=== PATIENT | female | born 1980 | race African-American/Black ===

== ENCOUNTER → 2020-01-15 | Day surgery (SDC) | payer OTHER ==
--- NOTE | 2020-01-15 10:52 | RAD REPORT ---
EXAM DESCRIPTION: Ultrasound-guided vacuum assisted right breast core biopsy CLINICAL HISTORY: Breast mass N63.41, N63.24 COMPARISON: Liver Only dated 12/16/2017 FINDINGS: Informed consent was obtained and time-out was performed. The patient's right breast was prepped and draped in the usual sterile fashion. 1% lidocaine was used for local anesthetic purposes. Utilizing aseptic technique and ultrasound guidance, a 12 gauge vacuum assisted core biopsy device wa s used to obtain 2 core specimens through the mass of interest. A post biopsy clip was then placed. All collected material was sent for cytology. Patient tolerated procedure well. IMPRESSION: Successful ultrasound guided vacuum assisted right breast mass biopsy.
== END | disposition home or self-care (01) ==
LOC: DS 09:52
PROVIDERS: ATTEND Surgery
DX: N63.41 Unspecified lump in right breast, subareolar (principal); N63.24 Unspecified lump in the left breast, lower inner quadrant
CPT/HCPCS: 19083; 88305

== ENCOUNTER 2020-03-12 06:52 | Day surgery (SDC) | payer OTHER ==
[2020-03-11 18:07] LABS: Absolute Lymphocytes (CBC) 2.1 K/uL (0.7-4.9); Basophils % 0.7 % (0-1.3); Hematocrit 40.9 % (36.0-45.0); Lymphocytes % 42.6 % (15.3-44.8); MPV 10.3 fL (7.6-11.3); RBC Red Blood Cell Count 5.96 M/uL (3.86-4.86)
[2020-03-11 18:27] LABS: BUN Blood Urea Nitrogen 10 mg/dL (7-18); Bicarbonate 28 mmol/L (21-32); Glucose Level 74 mg/dL (74-106); Potassium 3.2 mmol/L (3.5-5.1); Sodium Level 139 mmol/L (136-145)
[2020-03-11 18:42] LABS: Blood Morphology Comment NOTED (NOT SEEN); Hypochromasia 1+; Platelet Estimate ADEQ; White Blood Cell Scan OK (OK)
[2020-03-12] MEDS ORDERED: Ringers Lactate 1,000 ML IV ONE ×2 (07:34→09:51)
--- NOTE | 2020-03-12 08:16 | RAD REPORT ---
EXAM DESCRIPTION: US - Brst,Preop NL Wire Init w/Guid - 03/12/2020 7:40 am CLINICAL HISTORY: Breast mass FINDINGS: The skin, subcutaneous tissues and breast tissue were anesthetized with lidocaine. Under sonographic guidance a Kopan's hook wire was placed into the 9 millimeter mass within the inner right breast. The patient then left for the surgical department IMPRESSION: Ultrasound-guided needle wire localization of a right breast mass
[2020-03-12] MEDS ORDERED: EPHEDRINE SULF 50 MG/ML VIAL ONE (08:18)
[2020-03-12] MEDS ORDERED: propofoL 200 MG/20 ML VIAL IV ONE ×2 (08:41→08:50)
[2020-03-12] MEDS ORDERED: FENTANYL CITR 100 MCG/2 ML ONE ×2 (08:41→08:50)
[2020-03-12] MEDS ORDERED: MIDAZOLAM HCL 2 MG/2 ML INJ ONE ×2 (08:42→08:51)
[2020-03-12] MEDS ORDERED: LIDOCAINE 2% MPF 5 ML VIAL ONE ×2 (08:42→08:51)
[2020-03-12] MEDS ORDERED: ONDANSETRON 4 MG/2 ML VIAL ONE ×2 (08:42→08:51)
[2020-03-12] MEDS: CEFAZOLIN/SWI 1gm 1 GM/10 ML SYR ONE ×2 (08:44→08:55)
[2020-03-12] MEDS ORDERED: dexAMETHasone 10 MG/ML VIAL ONE (08:50)
[2020-03-12] MEDS ORDERED: KETOROLAC 30 MG/ML INJ ONE (08:51)
--- NOTE | 2020-03-12 09:42 | P.BOP ---
Preoperative diagnosis: right breast tender mass Postoperative diagnosis: same Primary procedure: Right breast lumpectomy needle localized Shoulder Joiner: MARQUIS BAKER (TELEMARKETING MANAGER) Estimated blood loss: <10cc Specimen: breast mass Findings: as above Anesthesia: General Complications: None Transferred to: Recovery Room Condition: Good
--- NOTE | 2020-03-12 10:33 | OP ---
Date of Procedure: 03/12/2020 Surgeon: Reese Skinner MD School Operations Manager: VIRGINIA Brink. Preoperative Diagnosis: Right breast tender mass. Postoperative Diagnosis: Right breast tender mass. Procedure: Right breast lumpectomy, needle localized. Specimen: Breast mass. Findings: Lesion within the specimen by Dr. Ruth. Indications: This is the case of a female who comes to us with a breast mass. Given the pain, disco mfort, increasing in size, she wants that excised. Breast lumpectomy fully explained, needle localiz ed with benefits, alternatives, and risks including, but not limited to infection, bleeding, damage t o adjacent structures as complication, recurrence, OK and even . She also understands this may not relieve any symptoms. She might need more than one surgical intervention. She understood and si gned a consent. Description Of Procedure: Patient was brought to the operating room, placed in supine position. Ane sthesia was done without complication. This morning she went to a radiology suite where she had loca lization of the mass by Dr. Urbina. The patient was sent directly to the OR after that making sure the needle is intact without disrupting. When we prepped the area, once again we made sure that nee dles are intact without disrupt. After that the area was prepped and draped in usual sterile fashion . Time-out was called and we proceeded then to make a curvilinear incision in the periareolar region . Incision was carried down to subcutaneous tissue. Then, we proceeded to secure the lesion and the wire with Allis clamp and then we proceeded to do the dissection around the area. The specimen was sent to the pathologist with the intact needle and Dr. Ruth reported as needle within the specimen and lesion within the specimen. At that moment, area was already irrigated. We closed the area wit h 3-0 chromic and 4-0 PDS. The patient tolerated the procedure well. Hemostasis was obtained before closure. The patient is in her way to recovery in stable condition. Disposition: Home. Activity: As tolerated. No heavy lifting. Plan: Follow up in my office in 1 week. Call for appointment at [phone]. Keep area dry for 48 gilbert rs, then may shower. Keep Steri-Strip intact. Medications: See orders. HM/MODL Voice ID: [id number] Report ID: [id number]
[2020-03-12 10:42] VITALS: TEMP 97.1
--- NOTE | 2020-03-12 10:55 | RAD REPORT ---
EXAM DESCRIPTION: US - Surgical Specimen - 03/12/2020 9:55 am CLINICAL HISTORY: Breast mass FINDINGS: Ultrasound demonstrates the hypo echoic mass to lie within the resected breast surgical ti ssue
[2020-03-12] MEDS ORDERED: CODEINE 30MG/APAP 300MG TAB ONE (11:17)
[2020-03-12 11:19] VITALS: BP 118/93; O2SAT 100
== END 2020-03-12 11:55 | disposition home or self-care (01) ==
LOC: OR 06:52
PROVIDERS: ATTEND Surgery
PROC: 0HBT0ZZ Excision of Right Breast, Open Approach (ICD-10-PCS; principal; 2020-03-12 09:30)
DX: D24.1 Benign neoplasm of right breast (principal); N60.11 Diffuse cystic mastopathy of right breast; Z20.828 Contact with and (suspected) exposure to other viral communicable diseases
CPT/HCPCS: 85025; 80048; 36415; 84703; 88305; 76098; 19285; 19301; U0002; J2704 ×2; J2250; J3010; J1100; J0690; J7120 ×2; J2405 ×2; 88307

== ENCOUNTER 2020-09-20 17:58 | Emergency (ER) | payer OTHER ==
[2020-09-20] MEDS ORDERED: MORPHINE 2 MG/ML SYR ONE ×2 (20:44→23:16)
[2020-09-20 21:53] LABS: Absolute Lymphocytes (CBC) 1.7 K/uL (0.7-4.9); Basophils % 0.7 % (0-1.3); Hematocrit 40.5 % (36.0-45.0); Lymphocytes % 42.8 % (15.3-44.8); MPV 10.5 fL (7.6-11.3); RBC Red Blood Cell Count 5.82 M/uL (3.86-4.86)
[2020-09-20 22:00] LABS: Protime INR 0.99
[2020-09-20 22:03] LABS: BUN Blood Urea Nitrogen 4 mg/dL (7-18); Bicarbonate 24 mmol/L (21-32); Glucose Level 83 mg/dL (74-106); Potassium 3.4 mmol/L (3.5-5.1); Sodium Level 141 mmol/L (136-145)
[2020-09-20 22:05] LABS: Urine Blood 3+ (NEG); Urine Glucose NEGATIVE (NEG); Urine Protein NEGATIVE (NEG)
[2020-09-20] MEDS ORDERED: dexAMETHasone 10 MG/ML VIAL ONE (23:12)
[2020-09-20] MEDS ORDERED: CLINDAMYCIN 600MG/D5W 600 MG/50 ML BAG IV ONE (23:12)
--- NOTE | 2020-09-20 23:38 | EDPHYS ---
Physician Documentation [facility] Name: Stella Lucas Age: 40 yrs Sex: Female : 1980 Arrival Date: 09/20/2020 Time: 18:00 Bed 5 Private MD: ED Physician Danny Bliss HPI: 09/20 20:10 This 40 yrs old Black Female presents to ER via Ambulatory with complaints of Sore cp Throat, Facial Swelling, Abscess. 20:10 The patient presents with sore throat, dysphagia, of both solids and liquids. cp 20:10 The patient describes throat pain as constant. Onset: The symptoms/episode cp began/occurred 4 day(s) ago. Severity of symptoms: in the emergency department the symptoms are actually worse, moderately. Associated signs and symptoms: Pertinent positives: dysphagia, earache, Sore throat Pertinent negatives cough, fever. 20:10 Patient reports she started taking prescribed Augmentin 3 days ago. 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 - Social history:: Smoking status: Patient denies any tobacco usage or history of. ROS: 20:15 Constitutional: Positive for poor PO intake, Negative for body aches, chills, fever. cp 20:15 Eyes: Negative for injury, pain, redness, and discharge. cp 20:15 ENT: Positive for difficulty swallowing, ear pain, sore throat, Negative for drainage from ear(s), difficulty handling secretions. 20:15 Cardiovascular: Negative for chest pain, palpitations. 20:15 Respiratory: Negative for cough, shortness of breath, wheezing. 20:15 Abdomen/GI: Negative for abdominal pain, nausea, vomiting, and diarrhea, constipation. 20:15 Skin: Negative for cellulitis, rash. 20:15 Neuro: Negative for altered mental status, headache, weakness. 20:15 All other systems are negative. Exam: 20:20 Constitutional: The patient appears in no acute distress, alert, awake, well developed, cp well nourished, uncomfortable. 20:20 Head/Face: Normocephalic, atraumatic. cp 20:20 Eyes: Periorbital structures: appear normal, Conjunctiva: normal, no exudate, no injection, Sclera: no appreciated abnormality, Lids and lashes: appear normal, bilaterally. 20:20 ENT: External ear(s): are unremarkable, Ear canal(s): are normal, clear, TM's: dullness, bilaterally, Nose: is normal, Mouth: Lips: moist, Oral mucosa: moist, Posterior pharynx: Tonsils: no enlargement, no exudate, Uvula: midline, erythema, that is moderate. 20:20 Neck: ROM/movement: is normal, is supple, no meningismus, no nuchal rigidity, Lymph nodes: lymphadenopathy is appreciated, anterior cervical nodes. 20:20 Chest/axilla: Inspection: normal, Palpation: is normal, no crepitus, no tenderness. 20:20 Cardiovascular: Rate: normal, Rhythm: regular. 20:20 Respiratory: the patient does not display signs of respiratory distress, Respirations: normal, no use of accessory muscles, no retractions, labored breathing, is not present, Breath sounds: are clear throughout, no decreased breath sounds. 20:20 Abdomen/GI: Exam negative for discomfort, distension, guarding, Inspection: abdomen appears normal. Vital Signs: 18:27 BP 124 / 91; Pulse 73; Resp 16 S; Temp 97.3(TE); Pulse Ox 99% on R/A; Weight 65.77 kg ca1 (R); Height 5 ft. 2 in. (157.48 cm) (R); Pain 8/10; 20:47 BP 114 / 79; Pulse 61; Resp 18; Temp 98.4; Pulse Ox 100% on R/A; mg2 22:23 BP 118 / 85; Pulse 62; Resp 18; Pulse Ox 100% on R/A; mg2 18:27 Body Mass Index 26.52 (65.77 kg, 157.48 cm) ca1 MDM: 20:10 Patient medically screened. cp 21:35 Differential diagnosis: apthous stomatitis, yamil-moore virus, group A strep cp tonsillitis, celestina's angina, peritonsillar abscess pharyngitis, retropharyngeal abcess. 22:40 Data reviewed: vital signs, nurses notes. Data interpreted: Pulse oximetry: on room air snw is 100 %. Interpretation: normal. Counseling: I had a detailed discussion with the patient and/or guardian regarding: the historical points, exam findings, and any diagnostic results supporting the discharge/admit diagnosis, lab results. 09/20 20:12 Order name: CBC with Diff; Complete Time: 23:42 cp 09/20 20:12 Order name: BMP; Complete Time: 22:05 cp 09/20 20:12 Order name: PT-INR; Complete Time: 22:08 cp 09/20 20:12 Order name: Levy Screen Profile; Complete Time: 22:05 cp 09/20 22:00 Order name: Urine Dipstick--Ancillary (enter results) tt3 09/20 22:00 Order name: Urine --Ancillary (enter results) tt3 09/20 20:12 Order name: CT Soft Tissue Neck W/contr cp 09/20 22:00 Order name: Urine Dipstick-Ancillary; Complete Time: 22:05 EDMS 09/20 22:00 Order name: Urine --Ancillary; Complete Time: 22:05 EDMS 09/20 23:10 Order name: Manual Differential; Complete Time: 23:42 EDMS 09/20 20:12 Order name: Urine Dipstick-Ancillary (obtain specimen); Complete Time: 21:47 cp 09/20 20:12 Order name: Urine Test (obtain specimen); Complete Time: 21:47 cp Administered Medications: 20:44 Drug: morphine 2 mg Route: IVP; Site: left wrist; mg2 22:23 Follow up: Response: No adverse reaction mg2 22:59 Drug: Decadron - Dexamethasone 10 mg Route: IVP; Site: left wrist; mg2 23:31 Follow up: Response: No adverse reaction mg2 23:00 Drug: morphine 2 mg Route: IVP; Site: left wrist; mg2 23:00 Drug: Clindamycin 600 mg Route: IVPB; Infused Over: 30 mins; Site: left wrist; mg2 23:31 Follow up: Response: No adverse reaction; IV Status: Completed infusion; IV Intake: [id number] 23:41 CANCELLED (Other Intervention Used): Lortab (5 mg-500 mg) 1 tabs PO once; RASS on snw ADMIN: Combtv4, Very Agttd3, Agttd2, Rstlss1, AlertClm0, Drwsy-1, Lt Sdtn-2, Mod Sdtn-3, Dp Sdtn-4, UnArsble-5 23:45 Drug: Lortab Liquid 10 ml Route: PO; mg2 Disposition: 09/21 06:05 Co-signature as Attending Physician, Danny Bliss MD. [facility] Disposition: 09/20/20 23:37 Discharged to Home. Impression: Acute laryngopharyngitis, Infectious mononucleosis, unspecified. - Condition is Stable. - Discharge Instructions: Laryngitis, Infectious Mononucleosis, Pharyngitis. - Prescriptions for Clindamycin HCl 300 mg Oral Capsule - take 1 capsule by ORAL route every 8 hours for 10 days; 30 capsule. Tylenol- Codeine #3 300-30 mg Oral Tablet - take 2 tablets by ORAL route every 4-6 hours As needed; 12 tablet. Mobic 7.5 mg Oral Tablet - take 1 tablet by ORAL route once daily take with food; 20 tablet. - Medication Reconciliation Form, Thank You Letter, Antibiotic Education, Prescription Opioid Use form. - Work release form (09/20/20 23:57). mg2 - Follow up: Emergency Department; When: As needed; Reason: Worsening of condition. Follow up: Private Physician; When: 2 - 3 days; Reason: Recheck today's complaints, Continuance of care, Re-evaluation by your physician. - Notes: Stop amoxil Signatures: Dispatcher [employer] EDMS Elise Luis FNP-C MILITARY COMMUNICATIONS SPECIALIST-Csnw Sj Werner PA PA cp Gardose, Michele, RN RN [facility] Corie Shaikh RN RN [facility] Danny Bliss MD MD [facility] Corrections: (The following items were deleted from the chart) 09/20 23:41 23:36 Lortab (5 mg-500 mg) 1 tabs PO once; RASS on ADMIN: Combtv4, Very Agttd3, Agttd2, snw Rstlss1, AlertClm0, Drwsy-1, Lt Sdtn-2, Mod Sdtn-3, Dp Sdtn-4, UnArsble-5 ordered. snw 23:41 23:41 Lortab (5 mg-500 mg) 1 tabs PO once; RASS on ADMIN: Combtv4, Very Agttd3, Agttd2, snw Rstlss1, AlertClm0, Drwsy-1, Lt Sdtn-2, Mod Sdtn-3, Dp Sdtn-4, UnArsble-5 ordered. snw 23:43 23:37 09/20/2020 23:37 Discharged to Home. Impression: Acute laryngopharyngitis. snw Condition is Stable. Forms are Medication Reconciliation Form, Thank You Letter, Antibiotic Education, Prescription Opioid Use. Follow up: Emergency Department; When: As needed; Reason: Worsening of condition. Follow up: Private Physician; When: 2 - 3 days; Reason: Recheck today's complaints, Continuance of care, Re-evaluation by your physician. snw 23:52 23:43 09/20/2020 23:37 Discharged to Home. Impression: Acute laryngopharyngitis; mg2 Infectious mononucleosis, unspecified. Condition is Stable. Discharge Instructions: Laryngitis, Pharyngitis. Prescriptions for Clindamycin HCl 300 mg Oral Capsule - take 1 capsule by ORAL route every 8 hours for 10 days; 30 capsule, Tylenol-Codeine #3 300-30 mg Oral Tablet - take 2 tablets by ORAL route every 4-6 hours As needed; 12 tablet, Mobic 7.5 mg Oral Tablet - take 1 tablet by ORAL route once daily take with food; 20 tablet. and Forms are Medication Reconciliation Form, Thank You Letter, Antibiotic Education, Prescription Opioid Use. Follow up: Emergency Department; When: As needed; Reason: Worsening of condition. Follow up: Private Physician; When: 2 - 3 days; Reason: Recheck today's complaints, Continuance of care, Re-evaluation by your physician. snw
--- NOTE | 2020-09-20 23:38 | ER ---
Nurse's Notes [facility] Name: Stella Lucas Age: 40 yrs Sex: Female : 1980 Arrival Date: 09/20/2020 Time: 18:00 Bed 5 Private MD: Diagnosis: Acute laryngopharyngitis;Infectious mononucleosis, unspecified Presentation: 09/20 18:27 Chief complaint: Spouse and/or significant other states: Diagnosed with tonsillitis and ca1 peritonsillar abscess on 09/17/2020. Here for pain on L side of face, under the chin, throat. It hurts to talk, swallow. Reports difficulty swallowing. Coronavirus screen: Client denies travel out of the [place] in the last 14 days. sore throat, Client presents with at least one sign or symptom that may indicate coronavirus-19. Standard/surgical mask placed on the client. Provider contacted for isolation considerations. Ebola Screen: Patient negative for fever greater than or equal to 101.5 degrees Fahrenheit, and additional compatible Ebola Virus Disease symptoms Patient denies exposure to infectious person. Patient denies travel to an Ebola-affected area in the 21 days before illness onset. No symptoms or risks identified at this time. Initial Sepsis Screen: Does the patient meet any 2 criteria? No. Patient's initial sepsis screen is negative. Does the patient have a suspected source of infection? No. Patient's initial sepsis screen is negative. Risk Assessment: Do you want to hurt yourself or someone else? Patient reports no desire to harm self or others. Onset of symptoms was September 20, 2020. 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 - Social history:: Smoking status: Patient denies any tobacco usage or history of. Screenin:45 Abuse screen: Denies threats or abuse. Denies injuries from another. Nutritional mg2 screening: No deficits noted. Tuberculosis screening: No symptoms or risk factors identified. Fall Risk IV access (20 points). Assessment: 20:44 Pain: Complains of pain in neck/throat. Neuro: Level of Consciousness is awake, alert, mg2 obeys commands, Oriented to person, place, time, situation. Cardiovascular: Capillary refill < 3 seconds Patient's skin is warm and dry. Respiratory: Airway is patent Respiratory effort is even, unlabored, Respiratory pattern is regular, symmetrical. GI: No signs and/or symptoms were reported involving the gastrointestinal system. : No signs and/or symptoms were reported regarding the genitourinary system. EENT: Throat has enlarged tonsils Reports throat pain/difficulty swallowing. Derm: Skin is intact, is healthy with good turgor, Skin is pink, warm \T\ dry. normal. Musculoskeletal: Circulation, motion, and sensation intact. Capillary refill < 3 seconds. 23:30 Reassessment: Patient appears in no apparent distress at this time. Patient and/or mg2 family updated on plan of care and expected duration. Pain level reassessed. Patient is alert, oriented x 3, equal unlabored respirations, skin warm/dry/pink. Patient states feeling better. Vital Signs: 18:27 BP 124 / 91; Pulse 73; Resp 16 S; Temp 97.3(TE); Pulse Ox 99% on R/A; Weight 65.77 kg ca1 (R); Height 5 ft. 2 in. (157.48 cm) (R); Pain 8/10; 20:47 BP 114 / 79; Pulse 61; Resp 18; Temp 98.4; Pulse Ox 100% on R/A; mg2 22:23 BP 118 / 85; Pulse 62; Resp 18; Pulse Ox 100% on R/A; mg2 18:27 Body Mass Index 26.52 (65.77 kg, 157.48 cm) ca1 ED Course: 18:00 Patient arrived in ED. am2 18:30 Triage completed. ca1 18:31 Arm band placed on right wrist. ca1 20:03 Sj Werner PA is PHCP. cp 20:03 Danny Bliss MD is Attending Physician. cp 20:17 Tushar Reyes RN is Primary Nurse. mg2 20:46 Patient has correct armband on for positive identification. Door closed. Warm blanket mg2 given. 20:47 No provider procedures requiring assistance completed. Inserted saline lock: 20 gauge mg2 in left wrist, using aseptic technique. Blood collected. 21:52 PHCP role handed off by Sj Werner PA snw 21:52 Elise Luis FNP-C is PHCP. snw 22:57 CT Soft Tissue Neck W/contr In Process Unspecified. EDMS 23:52 IV discontinued, intact, bleeding controlled, No redness/swelling at site. Pressure mg2 dressing applied. Administered Medications: 20:44 Drug: morphine 2 mg Route: IVP; Site: left wrist; mg2 22:23 Follow up: Response: No adverse reaction mg2 22:59 Drug: Decadron - Dexamethasone 10 mg Route: IVP; Site: left wrist; mg2 23:31 Follow up: Response: No adverse reaction mg2 23:00 Drug: morphine 2 mg Route: IVP; Site: left wrist; mg2 23:00 Drug: Clindamycin 600 mg Route: IVPB; Infused Over: 30 mins; Site: left wrist; mg2 23:31 Follow up: Response: No adverse reaction; IV Status: Completed infusion; IV Intake: [id number] 23:41 CANCELLED (Other Intervention Used): Lortab (5 mg-500 mg) 1 tabs PO once; RASS on snw ADMIN: Combtv4, Very Agttd3, Agttd2, Rstlss1, AlertClm0, Drwsy-1, Lt Sdtn-2, Mod Sdtn-3, Dp Sdtn-4, UnArsble-5 23:45 Drug: Lortab Liquid 10 ml Route: PO; mg2 Intake: 23:31 IV: 50ml; Total: 50ml. mg2 Outcome: 23:37 Discharge ordered by MD. snw 23:52 Discharged to home ambulatory. mg2 23:52 Condition: stable 23:52 Discharge instructions given to patient, Instructed on discharge instructions, follow up and referral plans. medication usage, Demonstrated understanding of instructions, follow-up care, medications, Prescriptions given X 3. 23:52 Patient left the ED. mg2 Signatures: Dispatcher [employer] EDMS Elise Luis FNP-C [facility] ON-Csnw Sj Werner PA PA cp Moreno, Amanda am2 Tushar Reyes RN RN mg2 Corie Shaikh RN RN ca1
[2020-09-20 23:41] LABS: Blood Morphology Comment NOTED (NOT SEEN); Ovalocytes 1+; Platelet Estimate ADEQ
[2020-09-20] MEDS ORDERED: HYDROCOD 2.5mg-ACETAMIN 108mg/5mL Soln ONE ×2 (23:56→23:59)
[2020-09-20] MEDS ORDERED: HYDROCODONE/APAP 5/325 MG TAB ONE (23:57)
[2020-09-21 00:20] VITALS: TEMP 98.4; O2SAT 100
[2020-09-21 00:21] VITALS: BP 118/85
--- NOTE | 2020-09-22 11:40 | RAD REPORT ---
EXAM DESCRIPTION: CT - Soft Tissue Neck W/Contr - 09/21/2020 4:29 am CLINICAL HISTORY: 40 years Female Swelling;Sore throat COMPARISON: None. TECHNIQUE: Contiguous axial images obtained through the neck following IV contrast. Reformatted imag es obtained. This exam was performed according to our department optimization program which includes automated exp osure control, adjustment of the mA and/or kv according to patient size and/or use of iterative recon struction technique. FINDINGS: The visualized intracranial structures and post septal orbits appear grossly unremarkable. The parotid glands, submandibular glands and thyroid gland appear unremarkable. There is minimal nonspecific groundglass opacity in the anterior right upper lung. The pharynx and larynx appear unremarkable. No radiopaque foreign body is identified. Scattered lymph nodes in the neck likely reactive. No fluid or significant mucosal thickening in the visualized paranasal sinuses. IMPRESSION: There is minimal nonspecific groundglass opacity in the anterior right upper lung. Santos es from infectious/inflammatory process are not entirely excluded. Electronically signed by: Martin Banerjee MD 09/20/2020 11:13 PM CDT Due to temporary technical issues with the PACS/Fluency reporting system, reports are being signed by the in house radiologist without review as a courtesy to ensure prompt reporting. The interpreting r adiologist is fully responsible for the content of the report.
== END 2020-09-20 23:52 | disposition home or self-care (01) ==
LOC: ER 17:58
DX: J06.0 Acute laryngopharyngitis (principal); B27.90 Infectious mononucleosis, unspecified without complication
CPT/HCPCS: 85025; 80048; 36415; 86308; 81025; 85610; 81003; 70491; Q9967; J1100; J2270 ×2; 96365; 96375; 99284

== ENCOUNTER 2022-08-02 22:13 | Emergency (ER) | payer BC ==
--- OUTSIDE RECORDS SUMMARY | 2022-08-02 22:16 | XMS REPORT | Continuity of Care Document ---
:1980 Author Organization [facility] Address [address] [place] [address] Dr. Vaz[address] [place] [id number] Care Team Providers Name Role Phone Cihkis Hassan Attending Clinician Unavailable Lynda Cruz Attending Clinician Unavailable Payers Payer Name Policy Type Policy Number Effective Date Expiration Date S ource SELF-PAY CI [id number] Problems This patient has no known problems. Allergies, Adverse Reactions, Alerts This patient has no known allergies or adverse reactions. Medications This patient has no known medications. Procedures This patient has no known procedures. Encounters Start End Encounter Admission Attending Care Care Encounter Source Date/Time Date/Time Type Type Clinicians Facility Department ID 2022-05-03 Outpatient IBNS IBNS [id number] [place]ogi 18:41:05 [id number] [facility] 2021-12-28 Outpatient Hassan, [facility] [id number] Common 14:22:00 [facility] 2021-12-17 Outpatient Hassan, [facility] [id number] Common 09:47:01 [facility] 2021-09-09 Outpatient Hassan, [facility] [id number] Common 16:49:00 [facility] 2021-08-04 Outpatient IBNS IBNS [id number] [place]ogi 12:27:51 [id number] [facility] 2021-07-29 Outpatient Hassan, [facility] [id number] Common 14:23:35 [facility] 2021-07-29 Outpatient Hassan, [facility] [id number] Common 14:20:33 Ch[facility]is [id number] [facility] 2021-07-29 Outpatient Anthony [facility] [id number] 11:06:44 Lynda [id number] [facility] Results This patient has no known results.
[2022-08-02] MEDS ORDERED: ONDANSETRON 4 MG/2 ML VIAL ONE (23:58)
[2022-08-02] MEDS ORDERED: NA CHLORIDE 0.9% 1,000 ML ONE (23:58)
[2022-08-02] MEDS ORDERED: MORPHINE 4 MG/ML SYR ONE (23:58)
[2022-08-02 23:59] LABS: Urine Blood 3+ (Negative); Urine Glucose Negative (Negative); Urine Protein Negative (Negative); Urine Specific Gravity 1.015 (1.005-1.030)
[2022-08-03 00:14] LABS: Urine Specific Gravity/Preg 1.015 (1.005-1.030)
[2022-08-03 00:16] LABS: Urine Bacteria <20 /HPF (<20); Urine RBC <5 /HPF (None Seen)
[2022-08-03 00:29] LABS: Absolute Lymphocytes (CBC) 2.2 K/uL (0.7-4.9); Hematocrit 38.2 % (36.0-45.0); Lymphocytes % 43.8 % (15.3-44.8); MCV 69.8 fL (80-100); MPV 9.7 fL (7.6-11.3); RBC Red Blood Cell Count 5.48 M/uL (3.86-4.86)
[2022-08-03 00:33] LABS: Albumin 3.7 g/dL (3.4-5.0); Potassium 3.5 mmol/L (3.5-5.1); Protein, Total 7.5 g/dL (6.4-8.2)
[2022-08-03] MEDS ORDERED: LORazepam 2 MG/ML VIAL ONE (01:15)
--- NOTE | 2022-08-03 01:42 | EDPHYS ---
Physician Documentation [facility] Name: Stella Lucas Age: 42 yrs Sex: Female : 1980 Arrival Date: 08/02/2022 Time: 22:17 Bed 6 Private MD: ED Physician Sj Regan HPI: 08/02 23:15 This 42 yrs old Black Female presents to ER via Ambulatory with complaints of Back Pain.cp 23:15 The patient presents with pain that is acute. The symptoms are located in the low back, cp right side worse than left. Onset: The symptoms/episode began/occurred 2 day(s) ago. The pain radiates to the right leg and left leg. 23:15 Associated signs and symptoms: Pertinent positives: abdominal pain, Pertinent cp negatives: chest pain, constipation, fever, hematuria, incontinence, numbness, weakness. 23:15 The problem was sustained Patient reports pain started after sneezing. Modifying cp factors: the patient symptoms are aggravated by movement, standing, walking. Severity of symptoms: in the emergency department the symptoms are unchanged, despite home interventions. 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 - Social history:: Smoking status: Patient denies any tobacco usage or history of. ROS: 08/02 23:20 Constitutional: Negative for body aches, chills, fever, poor PO intake. cp 23:20 Eyes: Negative for injury, pain, redness, and discharge. cp 23:20 Neck: Negative for pain with movement, pain at rest, stiffness. 23:20 Cardiovascular: Negative for chest pain, edema, palpitations. 23:20 Respiratory: Negative for cough, shortness of breath, wheezing. 23:20 Abdomen/GI: Positive for abdominal pain, Negative for vomiting, diarrhea, constipation, bowel incontinence. 23:20 Back: Positive for pain at rest, pain with movement, of the low back area. 23:20 : Negative for urinary symptoms, bladder incontinence, vaginal bleeding, vaginal discharge. 23:20 Neuro: Negative for altered mental status, headache, numbness, weakness. 23:20 All other systems are negative. Exam: 23:25 Constitutional: The patient appears in no acute distress, alert, awake, non-toxic, well cp developed, well nourished, in obvious pain, uncomfortable. 23:25 Head/Face: Normocephalic, atraumatic. cp 23:25 Eyes: Periorbital structures: appear normal, Conjunctiva: normal, no exudate, no injection, Sclera: no appreciated abnormality, Lids and lashes: appear normal, bilaterally. 23:25 ENT: External ear(s): are unremarkable, Nose: is normal, Mouth: Lips: moist, Oral mucosa: pink and intact, moist, Posterior pharynx: Airway: no evidence of obstruction, patent. 23:25 Neck: ROM/movement: is normal, is supple, without pain, no range of motions limitations. 23:25 Chest/axilla: Inspection: normal. 23:25 Cardiovascular: Rate: normal, Rhythm: regular. 23:25 Respiratory: the patient does not display signs of respiratory distress, Respirations: normal, no use of accessory muscles, no retractions, labored breathing, is not present, Breath sounds: are clear throughout, no decreased breath sounds, no stridor, no wheezing. 23:25 Abdomen/GI: Inspection: abdomen appears normal, Bowel sounds: active, all quadrants, Palpation: soft, in all quadrants, mild abdominal tenderness, in the right lower quadrant and left lower quadrant, involuntary guarding, is not appreciated. 23:25 Back: pain, that is severe, of the right low back, ROM is painful, with all movement. 23:25 Skin: cellulitis, is not appreciated, no rash present. 23:25 Neuro: Orientation: to person, place \T\ time. Mentation: is normal, Motor: moves all fours, strength is normal, Sensation: is normal, Gait: is steady, Deep tendon reflexes are 2+ (normal) in the right patellar, right Achilles, left patellar and left Achilles. Vital Signs: 22:54 BP 126 / 79; Pulse 73; Resp 18 S; Temp 98.6(O); Pulse Ox 100% on R/A; Weight 64.86 kg bb (R); Height 5 ft. 1 in. (154.94 cm) (R); Pain 9/10; 08/03 02:24 BP 100 / 66; Pulse 72; Resp 15; Pulse Ox 100% on R/A; Pain 0/10; kl 08/02 22:54 Body Mass Index 27.02 (64.86 kg, 154.94 cm) bb MDM: 08/02 22:57 Patient medically screened. olga lidia 08/03 00:00 Differential diagnosis: Pyelonephritis ruptured disc, Ureterolithiasis cauda equina, cp spinal stenosis, sciatica. 01:41 Data reviewed: vital signs, nurses notes, lab test result(s), radiologic studies, CT cp scan. 01:41 Consideration of Admission/Observation Escalation of care including cp admission/observation considered. I considered the following discharge prescriptions or medication management in the emergency department Medications were administered in the Emergency Department. See MAR. Test considered but Not performed: MRI: MRI lumbar spine. Counseling: I had a detailed discussion with the patient and/or guardian regarding: the historical points, exam findings, and any diagnostic results supporting the discharge/admit diagnosis, lab results, radiology results, the need for outpatient follow up, a family practitioner, to return to the emergency department if symptoms worsen or persist or if there are any questions or concerns that arise at home. Response to treatment: the patient's symptoms have markedly improved after treatment. 08/02 23:02 Order name: Urine Microscopic Only; Complete Time: 00:27 cp 08/02 23:08 Order name: CBC with Diff cp 08/03 00:47 Interpretation: Normal except: RBC 5.48; MCV 69.8; MCH 22.1; MCHC 31.7; WALKER% 39.0; MN% cp 12.5. 08/02 23:08 Order name: CMP; Complete Time: 00:47 cp 08/03 00:47 Interpretation: Normal except: GFR 89; AST 7; GLOB 3.8; A/G 1.0. cp 08/02 23:08 Order name: Lipase; Complete Time: 00:47 cp 08/03 00:00 Order name: Urine Dipstick-Ancillary; Complete Time: 00:27 EDMS 08/03 00:27 Interpretation: Normal except: UBLD 3+. cp 08/03 00:10 Order name: Urine --Ancillary (enter results); Complete Time: 00:27 mw2 08/02 23:08 Order name: CT Stone Protocol cp 08/03 00:34 Order name: CBC Smear Scan EDMS 08/02 23:02 Order name: Urine Test (obtain specimen); Complete Time: 00:09 cp 08/02 23:02 Order name: Urine Dipstick-Ancillary (obtain specimen); Complete Time: 00:09 cp 08/02 23:08 Order name: IV Saline Lock; Complete Time: 00:09 cp 08/02 23:08 Order name: Labs collected and sent; Complete Time: 00:09 cp Administered Medications: 08/02 23:55 Drug: Zofran (Ondansetron) 4 mg Route: IVP; Site: right antecubital; kl 08/03 00:44 Follow up: Response: No adverse reaction; Pain is decreased kl 00:08 Drug: morphine 4 mg Route: IVP; Infused Over: 4 mins; Site: right antecubital; kl 00:44 Follow up: Response: No adverse reaction; Pain is decreased kl 00:09 Drug: NS 0.9% 1000 ml Route: IV; Rate: 1 bolus; Site: right antecubital; kl 01:14 Drug: Ativan (LORazepam) 0.5 mg Route: IVP; Site: left antecubital; kl 01:36 Drug: Decadron - Dexamethasone 10 mg Route: IVP; Site: left antecubital; kl 01:40 Drug: Ketorolac 15 mg Route: IVP; Site: left antecubital; kl 01:46 Drug: morphine 4 mg Route: IVP; Infused Over: 4 mins; Site: left antecubital; kl 01:47 Not Given (Other Intervention Used): Baclofen 10 mg PO once kl Disposition Summary: 08/03/22 01:42 Discharge Ordered Location: Home cp Problem: new cp Symptoms: have improved cp Condition: Stable cp Diagnosis - Lumbago with sciatica cp Followup: cp - With: Private Physician - When: 2 - 3 days - Reason: Recheck today's complaints Discharge Instructions: - Discharge Summary Sheet cp - Acute Back Pain, Adult cp - Sciatica cp - Heat Therapy cp - Back Exercises cp - Form - Excuse from Work, School, or Physical Activity cp Forms: - Medication Reconciliation Form cp - Thank You Letter cp - Antibiotic Education cp - Prescription Opioid Use cp Prescriptions: - Medrol (Arturo) 4 mg Oral Tablets, Dose Pack - take 1 tablet by ORAL route as directed - follow package instructions; 1 cp packet; Refills: 0, Product Selection Permitted - methocarbamol 500 mg Oral Tablet - take 1 tablet by ORAL route 3 times per day; 30 tablet; Refills: 0, Product cp Selection Permitted - Tramadol 50 mg Oral Tablet - take 1 tablet by ORAL route every 8 hours as needed; 12 tablet; Refills: 0, cp Product Selection Permitted Signatures: Dispatcher [employer] Glo Leon, RN Sj Clemens MD MD cha Ballard, Brenda, Sj Suárez RN, PA PA cp
--- NOTE | 2022-08-03 01:42 | ER ---
Nurse's Notes [facility] Name: Stella Lucas Age: 42 yrs Sex: Female : 1980 Arrival Date: 08/02/2022 Time: 22:17 Bed 6 Private MD: Diagnosis: Lumbago with sciatica Presentation: 08/02 22:54 Chief complaint: Patient states: she has been having severe back pain since Tuesday. bb Coronavirus screen: At this time, the client does not indicate any symptoms associated with coronavirus-19. Ebola Screen: No symptoms or risks identified at this time. Initial Sepsis Screen: Does the patient meet any 2 criteria? No. Patient's initial sepsis screen is negative. Does the patient have a suspected source of infection? No. Patient's initial sepsis screen is negative. Risk Assessment: Do you want to hurt yourself or someone else? Patient reports no desire to harm self or others. Onset of symptoms was July 31, 2022. 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 - Social history:: Smoking status: Patient denies any tobacco usage or history of. Screenin:11 [facility] ED Fall Risk Assessment (Adult) History of falling in the last 3 months, kl including since admission No falls in past 3 months (0 pts) Confusion or Disorientation No (0 pts) Intoxicated or Sedated No (0 pts) Impaired Gait Yes (1 pt) Mobility Assist Device Used No (0 pt) Altered Elimination No (0 pt) Score/Fall Risk Level 0 - 2 = Low Risk Oriented to surroundings, Maintained a safe environment. Abuse screen: Denies threats or abuse. Nutritional screening: No deficits noted. Tuberculosis screening: No symptoms or risk factors identified. Assessment: 00:09 General: Appears distressed, uncomfortable, well groomed, well developed, well kl nourished, Behavior is cooperative, anxious. Pain: Complains of pain in low back area and right low back Pain currently is 10 out of 10 on a pain scale. Aggravated by increased activity, repositioning. Neuro: No deficits noted. Level of Consciousness is awake, alert, obeys commands, Oriented to person, place, time, situation. Cardiovascular: No deficits noted. Respiratory: No deficits noted. GI: No deficits noted. No signs and/or symptoms were reported involving the gastrointestinal system. : No deficits noted. No signs and/or symptoms were reported regarding the genitourinary system. Musculoskeletal: Reports pain in low back area and right low back since earlier today after sneezing and twisting back. 01:00 Reassessment: Patient is alert, oriented x 3, equal unlabored respirations, skin kl warm/dry/pink. Patient states feeling better. Vital Signs: 08/02 22:54 BP 126 / 79; Pulse 73; Resp 18 S; Temp 98.6(O); Pulse Ox 100% on R/A; Weight 64.86 kg bb (R); Height 5 ft. 1 in. (154.94 cm) (R); Pain 9/10; 08/03 02:24 BP 100 / 66; Pulse 72; Resp 15; Pulse Ox 100% on R/A; Pain 0/10; kl 08/02 22:54 Body Mass Index 27.02 (64.86 kg, 154.94 cm) ED Course: 08/02 22:17 Patient arrived in ED. ag3 22:45 Sj Werner PA is PHCP. cp 22:45 Sj Regan MD is Attending Physician. cp 22:56 Triage completed. 22:56 Arm band placed on Patient placed in an exam room, on a stretcher. Family accompanied patient. 23:55 Inserted saline lock: 20 gauge in right antecubital area, using aseptic technique. kl Blood collected. 08/03 00:09 CBC with Diff Sent. kl 00:09 CMP Sent. kl 00:09 Lipase Sent. kl 00:09 Urine Microscopic Only Sent. kl 00:11 No provider procedures requiring assistance completed. kl 00:34 CT Stone Protocol In Process Unspecified. EDMS 02:00 No apparent distress. Resting quietly. Appears to be sleeping. kl 02:23 IV discontinued, intact, bleeding controlled, No redness/swelling at site. Pressure kl dressing applied. 02:24 Patient has correct armband on for positive identification. kl Administered Medications: 08/02 23:55 Drug: Zofran (Ondansetron) 4 mg Route: IVP; Site: right antecubital; kl 08/03 00:44 Follow up: Response: No adverse reaction; Pain is decreased kl 00:08 Drug: morphine 4 mg Route: IVP; Infused Over: 4 mins; Site: right antecubital; kl 00:44 Follow up: Response: No adverse reaction; Pain is decreased kl 00:09 Drug: NS 0.9% 1000 ml Route: IV; Rate: 1 bolus; Site: right antecubital; kl 01:14 Drug: Ativan (LORazepam) 0.5 mg Route: IVP; Site: left antecubital; kl 01:36 Drug: Decadron - Dexamethasone 10 mg Route: IVP; Site: left antecubital; kl 01:40 Drug: Ketorolac 15 mg Route: IVP; Site: left antecubital; kl 01:46 Drug: morphine 4 mg Route: IVP; Infused Over: 4 mins; Site: left antecubital; kl 01:47 Not Given (Other Intervention Used): Baclofen 10 mg PO once kl Medication: 02:24 VIS not applicable for this client. Outcome: 01:42 Discharge ordered by . zenon 02:23 Discharged to home ambulatory, with family. kl 02:23 Condition: improved 02:23 Discharge instructions given to patient, Instructed on discharge instructions, follow up and referral plans. medication usage, Demonstrated understanding of instructions, follow-up care, medications, Prescriptions given X 3. 02:24 Patient left the ED. Signatures: Dispatcher [employer] EDMS Glo Holliday RN RN kl Ballard, Brenda, RN RN bb Page, Corey, PA PA cp Gomez, Alice ag3
[2022-08-03] MEDS ORDERED: MORPHINE 4 MG/ML SYR ONE (01:44)
[2022-08-03] MEDS ORDERED: dexAMETHasone 10 MG/ML VIAL ONE (01:44)
[2022-08-03] MEDS ORDERED: KETOROLAC 30 MG/ML INJ ONE (01:45)
[2022-08-03 01:53] LABS: Blood Morphology Comment NOTED (NOT SEEN); Ovalocytes 1+; Platelet Estimate ADEQ; White Blood Cell Scan OK (OK)
[2022-08-03 02:49] VITALS: TEMP 98.6; O2SAT 100
[2022-08-03 02:50] VITALS: BP 100/66
--- NOTE | 2022-08-03 13:00 | RAD REPORT ---
EXAM DESCRIPTION: CT - Stone Protocol - 08/03/2022 6:17 am CLINICAL HISTORY: The patient is 42 years old and is Female; low back pain TECHNIQUE: Axial computed tomography images of the abdomen and pelvis without intravenous contrast. Sagittal and coronal reformatted images were created and reviewed. This CT exam was performed usi ng one or more of the following dose reduction techniques: automated exposure control, adjustment o f the mA and/or kV according to patient size, and/or use of iterative reconstruction technique. DLP: 561 mGy*cm COMPARISON: None. FINDINGS: LUNG BASES: Lung bases are clear. HEART: Visualized heart is within normal limits. ABDOMEN: LIVER: Unremarkable. GALLBLADDER AND BILE DUCTS: Unremarkable. No calcified stones. No ductal dilation. PANCREAS: Unremarkable. No ductal dilation. SPLEEN: Unremarkable. No splenomegaly. ADRENALS: Unremarkable. No mass. KIDNEYS AND URETERS: Fullness of the bilateral renal collecting systems. No obstructing stone. STOMACH AND BOWEL: Unremarkable. No obstruction. No mucosal thickening. PELVIS: APPENDIX: The appendix is seen and is within normal limits. BLADDER: Unremarkable. No stones. REPRODUCTIVE: See below. ABDOMEN and PELVIS: INTRAPERITONEAL SPACE: Unremarkable. No free air. No significant fluid collection. BONES/JOINTS: No acute fracture. No dislocation. SOFT TISSUES: Diastasis of rectus abdominis and fat-containing ventral hernia. VASCULATURE: Unremarkable. No abdominal aortic aneurysm. LYMPH NODES: Unremarkable. No enlarged lymph nodes. TUBES, LINES AND DEVICES: Intrauterine contraceptive device. Calcified uterine fibroid. IMPRESSION: 1. No acute abdominal or pelvic abnormality. 2. Diastasis of rectus abdominis and fat-containing ventral hernia. Electronically signed by: Randy Tam DO 08/03/2022 12:44 AM WORKDAY DIRECTOR Due to temporary technical issues with the PACS/Fluency reporting system, reports are being signed by the in house radiologists without review as a courtesy to insure prompt reporting. The interpreting radiologist is fully responsible for the content of the report.
== END 2022-08-03 02:24 | disposition home or self-care (01) ==
LOC: ER 22:13
DX: M54.40 Lumbago with sciatica, unspecified side (principal); R10.30 Lower abdominal pain, unspecified
CPT/HCPCS: 85025; 36415; 81025; 83690; 80053; 76377; 74176; J1100; J7030; J2405; 81003; 81015

== ENCOUNTER 2022-09-04 16:36 | Emergency (ER) | payer BC ==
--- OUTSIDE RECORDS SUMMARY | 2022-09-04 16:39 | XMS REPORT | Continuity of Care Document ---
:1980 Author Organization [facility] t Address [address] [facility]. [address] [place] [address] Care Team Providers Name Role Phone Chikis Hassan Attending Clinician Unavailable Lynda Cruz Attending Clinician Unavailable Heather Davis Attending Clinician Unavailable Heather Davis Admitting Clinician Unavailable Payers Payer Name Policy Type Policy Number Effective Date Expiration Date S ource SELF-PAY CI [id number] Problems This patient has no known problems. Allergies, Adverse Reactions, Alerts Allergy Allergy Status Severity Reaction(s) Onset Inactive Treating Comm ents Source Name Type Date Date Clinician No Known DA Active U [facility] All[facility]ie 08-12 [facility] s 00:00: d 00 [facility] Medications This patient has no known medications. Procedures This patient has no known procedures. Encounters Start End Encounter Admission Attending Care Care Encounter Source Date/Time Date/Time Type Type Clinicians Facility Department ID 2022-05-03 Outpatient IBNS IBNS [id number] Yogi 18:41:05 [id number] Charly 2021-12-28 Outpatient Mo [facility] [id number] Common 14:22:00 Chikis [facility] 2021-12-17 Outpatient Mo [facility] [id number] Common 09:47:01 Chikis [facility] 2021-09-09 Outpatient Hassan, [facility] [id number] Common 16:49:00 Chikis [facility] 2021-08-04 Outpatient IBNS IBNS [id number]- Yogi 12:27:51 [id number] Charly 2021-07-29 Outpatient Hassan, STLMLC [facility] [id number] Common 14:23:35 Chikis [id number] [facility] 2021-07-29 Outpatient Hassan, STLMLC [facility] [id number] Common 14:20:33 Chikis [id number] [facility] 2021-07-29 Outpatient Millender, STLMLC [facility] [id number] Common 11:06:44 Lynda [id number] [facility] 2022-08-12 2022-08-12 Outpatient OLESYA Davis, [facility] CORNELIA [id number] [facility] 12:15:00 12:15:[address] Results Test Description Test Time Test Comments Results Result Comments Source SURGICAL 2022-08-16 14:11:00 Test Item Value Reference Range Interpretation Michaela alcazar SURGICAL RUN (test DATE: 08/16/22 TOMASA amor - ADI PAGE 1 RUN TIME: 1411 Specimen Inquiry RUN USER: code = INTERFACE SR) RISSA NT: WYATT PAULA ACCT #: L [id number] LOC: [facility] U #: [id number] AGE/SX: 42/F ROOM: RE08/12/22[facility] DR: Marty Davis MD : 80 BED: DIS: STATUS: [facility] TLOC: SPEC #: [id number] RECD: STATUS: [facility] #: [id number] LINDSEY: 08/12/22-[address]: Heather Davis MD ENTERE SP TYPE: SURGICAL OTHR DR: ORDERED: [id number], 78698/4, ANATOMIC SPEC, SPECIMEN TRAC K PROCEDURES: [id number] (08/13/22) [id number] (08/13/22) SPECIMEN TRACK (08/13/22) TISSUE S: A. ENDOMETRIUM CURETTINGS / BIOPSY - ENDOMETRIAL CURRETTINGS B. FIBROID CUL-DE-SAC - ANTERIO R CUL-DE-SAC C. LIGAMENT - ROUND LIGAMENT D. PELVIC ADHESIONS E. TUBAL LIGATION - RIGHT TUBE FINAL DIAGNOSIS A. Endometrium, curettings: - Secretory endometrium with no atypia, hyperplasia, or malignancy seen. - Decidualized endometrial stroma, compatible with exogenous hormonal effe ct. - Benign endocervical mucosa present. B. Soft tissue, pelvic adhesions, excision: - Fibro connective tissue with fibrous adhesions. C. Fibroid, myomectomy: - Leiomyoma. D. Soft tissue, a nterior cul-de-sac, excision: - Fibroadipose tissue with endometriosis. E. Soft tissu e, round ligament, excision: - Fibroconnective tissue with no endometriosis. F. Fallopian tube, right, salpingectomy: - Complete cross- sections and fimbriated ends of fallopian tube with a paratubal cyst. GROSS DESCRIPTION A. Endometrial curettings. Received are several fragmen ts of pink tissue mixed withbloody mucus measuring aggregate 1.5 x 1.2 x 0.3 cm. All as A1. B. Adhesions. It consists of several pieces of fibrinous rodriguez pink tissue measuringaggregate 1 x 1 x 0.5 cm. All as B1. ROSE NUMICHAEL ON NEXT PAGE RUN DATE: 08/16/22 [facility] Saroj Ahmadi [facility] - LAB PAGE 2 RUN TIME: 1411 Specimen Inquiry RUN USER: INTERFACE SPEC #: [id number]:[id number] PATIENT: WYATT PAULA #[id number] (Continued) ------ GROSS DESCRIPTION (Co ntinued) C. Fibroid. Received is a single rodriguez nodule measuring 1 x 0.8 x 0.8 cm. It is serially sectioned to reveal a homogenous rodriguez-white surface. All as C1. D. Anterior cul-de-sac. It cons ists of 2 pieces of fibrous rodriguez tissue fragments measuring0.5 x 0.3 x 0.3 - 1 x 0.7 x 0.5 cm. They are sectioned and submitted as D1. E. Round ligament. It consists of a fibrous tissue fragment me asuring 0.8 x 0.4 x 0.3 cm. It is entirely submitted as E1. F. Right fallopian tube. Received is a fallopian tube segment with fimbriated endmeasuring 5.8 cm in length and has a diameter of 0.8 cm. At the fimbriated end is a smallcyst measuring 0.7 x 0.5 x 0.5 cm. Cut section of fallo pian tube with entire bisected endincluding cyst as F1. Technical tissue processing and slide preparation performed at [facility],[id number] , [place] [address] Unless gross only, the diagnosis is based upon m icroscopic examination.Immunohistochemistry: This test was developed and its performance characteristicsdetermined by this laboratory. It has not been approved nor does it need approval by the USFDA. Appropriate po sitive and negative controls are reviewed and judged to be acceptable.This laboratory i s certified under the Clinical Laboratory Improvement Amendments (CLIA-88)as qualified to per form high complexity clinical laboratory testing. MICROSCOPIC DESCRIPTION Microscopic exam ination is performed on all specimens and the findings areincorporated into the final diagnosis. Please see art martinez for findings. ---- Signed SIGNATURE ON FILE Kristyn Gee MD 3 [id number] END OF REPORT UR HCG [id number] 13:28:00 Test Item Value Reference Range Interpretation Comments UR HCG QUAL (test code = HCGQLU) NEGATIVE NEGATIVE CBC W/AUTO [id number] 13:27:00 Test Item Value Reference Range Interpretation Comments WHITE BLOOD CELL (test code = 5.7 K/mm3 3.5-11.0 N WBC) RED BLOOD CELL (test code = 5.98 M/mm3 4.70-6.10 N RBC) HEMOGLOBIN (test code = HGB) 13.1 G/DL 10.4-14.9 N HEMATOCRIT (test code = HCT) 42.5 % 31.5-44.1 N MEAN CELL VOLUME (test code = 71.1 Fl 84.5-98.6 L MCV) MEAN CELL HGB (test code = MCH) 21.9 pg 27.0-34.2 L MEAN CELL HGB CONCETRATION 30.8 G/DL 31.5-34.0 L (test code = MCHC) RED CELL DISTRIBUTION WIDTH 14.9 SD 11.5-14.5 H (test code = RDW) PLATELET COUNT (test code = 291 K/mm3 150-450 N PLT) MEAN PLATELET VOLUME (test code 11.30 fL 7.0-10.5 H = MPV) NEUTROPHIL % (test code = NT%) 47.0 % 40-76 N IMMATURE GRANULOCYTE % (test 0.2 % 0.0-5.0 N code = IG%) LYMPHOCYTE % (test code = LY%) 40.2 % 20.5-51.1 N MONOCYTE % (test code = MO%) 9.2 % 1.7-9.3 N EOSINOPHIL % (test code = EO%) 2.5 % 0.0-6.0 N BASOPHIL % (test code = BA%) 0.9 % 0.0-2.0 N NUCLEATED RBC % (test code = 0.0 /100WBC% 0.0-1.0 N NRBC%) NEUTROPHIL # (test code = NT#) 2.7 K/mm3 1.8-7.6 N IMMATURE GRANULOCYTE # (test 0.01 x10 3/uL 0.00-0.03 N code = IG#) LYMPHOCYTE # (test code = LY#) 2.3 K/mm3 0.6-3.2 N MONOCYTE # (test code = MO#) 0.5 K/mm3 0.3-1.1 N EOSINOPHIL # (test code = EO#) 0.1 K/mm3 0.0-0.4 N BASOPHIL # (test code = BA#) 0.1 K/mm3 0.0-0.1 N NUCLEATED RBC # (test code = 0.0 K/mm3 0.0-0.1 N NRBC#) MANUAL DIFF REQUIRED (test code NO DIFF/SCN CRITERIA = MDIFF) URINALYSIS [id number] 13:25:00 Test Item Value Reference Range Interpretation Comments UA GLUCOSE DIPSTICK (test NEGATIVE mg/dL NEG code = DGLUU) UA BILIRUBIN DIPSTICK (test NEGATIVE mg/dL NEG code = BILU) UA KETONE DIPSTICK (test NEGATIVE mg/dL NEG code = KETU) UA SPECIFIC GRAVITY (test 1.020 SG 1.005-1.030 code = SGU) UA BLOOD DIPSTICK (test NEGATIVE mg/DL NEG code = SILVANA) UA PH DIPSTICK (test code = 6.0 pH UNITS 5.0-7.0 ZAK) UA PROTEIN DIPSTICK (test NEGATIVE mg/dL NEG code = PROU) UA UROBILINIOGEN DIPSTICK 0.2 mg/dL <2.0 (test code = URO) UA NITRITE DIPSTICK (test NEGATIVE SCREEN NEG code = RAYMON) UA LEUKOCYTE ESTERASE NEGATIVE Leuk/mcL NEGATIVE DIPSTICK (test code = LEUU) Urine Specimen Type: Clean Catch
[2022-09-04 18:52] LABS: RBC Red Blood Cell Count 5.35 M/uL (3.86-4.86)
[2022-09-04 18:53] LABS: Absolute Lymphocytes (CBC) 2.2 K/uL (0.7-4.9); Lymphocytes % 29.2 % (15.3-44.8); MCV 69.1 fL (80-100); MPV 8.8 fL (7.6-11.3)
[2022-09-04 18:58] LABS: Protime INR 1.1
[2022-09-04 19:10] LABS: Bilirubin Direct 0.2 mg/dL (0-0.2); Bilirubin Total 0.7 mg/dL (0.2-1.0); Potassium 3.6 mmol/L (3.5-5.1)
[2022-09-04 19:11] LABS: Albumin 3.8 g/dL (3.4-5.0); Magnesium 2.2 mg/dL (1.6-2.4); Protein, Total 7.5 g/dL (6.4-8.2)
[2022-09-04 19:19] LABS: Urine Blood Negative (Negative); Urine Glucose Negative (Negative); Urine Protein Negative (Negative); Urine Specific Gravity <=1.005 (1.005-1.030)
[2022-09-04 19:30] LABS: Blood Morphology Comment NOTED (NOT SEEN); Platelet Estimate ADEQ; White Blood Cell Scan OK (OK)
[2022-09-04] MEDS ORDERED: dexAMETHasone 10 MG/ML VIAL ONE (20:03)
[2022-09-04] MEDS ORDERED: FENTANYL CITR 100 MCG/2 ML ONE (20:03)
--- NOTE | 2022-09-04 20:10 | RAD REPORT ---
EXAM DESCRIPTION: US - Extrem Venous W Compress Tomas - 09/04/2022 7:18 pm CLINICAL HISTORY: Pain COMPARISON: None. TECHNIQUE: Real-time sonographic evaluation of the bilateral lower extremity deep venous systems was performed. FINDINGS: Normal compressibility, flow augmentation, phasic flow and spontaneous flow is identified in both the left and right lower extremity deep venous systems. No intraluminal filling defects seen. IMPRESSION: No evidence of DVT in either lower extremity.
[2022-09-04 20:15] LABS: Urine Bacteria <20 /HPF (<20); Urine RBC <5 /HPF (None Seen)
--- NOTE | 2022-09-04 20:47 | ER ---
Nurse's Notes [facility] Name: Stella Lucas Age: 42 yrs Sex: Female : 1980 Arrival Date: 09/04/2022 Time: 16:38 Bed 13 Private MD: Diagnosis: Acute pain, not elsewhere classified Presentation: 09/04 17:04 Chief complaint: Patient states: Pains to various parts of body that is very sporadic, ss began after endometriosis surgery on 08/12. Pt has been seen by her PCP and Dr. Davis for this issue, but the medication only helps a little. Pt seen at urgent care yesterday morning and was told she may have fibromyalgia and told to follow up with a specialist. Pt has an appointment for September 24, but states she cannot wait that long to see the specialist because her pain is so bad. Coronavirus screen: Client denies travel out of the [place] in the last 14 days. Ebola Screen: Patient denies exposure to infectious person. Patient denies travel to an Ebola-affected area in the 21 days before illness onset. Initial Sepsis Screen: Does the patient meet any 2 criteria? No. Patient's initial sepsis screen is negative. Does the patient have a suspected source of infection? No. Patient's initial sepsis screen is negative. Risk Assessment: Do you want to hurt yourself or someone else? Patient reports no desire to harm self or others. 17:04 Method Of Arrival: Ambulatory ss 17:04 Acuity: SHERI 3 ss 17:04 Onset of symptoms is unknown. ss Historical: - Allergies: 17:02 No Known Allergies; ss - PMHx: 17:02 cyst on ovaries; Endometrosis; fibroids; ss - Immunization history:: Client reports receiving the 2nd dose of the Covid vaccine. - Social history:: Smoking status: Patient denies any tobacco usage or history of. Screenin:44 [facility] ED Fall Risk Assessment (Adult) History of falling in the last 3 months, db including since admission No falls in past 3 months (0 pts) Confusion or Disorientation No (0 pts) Intoxicated or Sedated No (0 pts) Impaired Gait No (0 pts) Mobility Assist Device Used No (0 pt) Altered Elimination No (0 pt) Score/Fall Risk Level 0 - 2 = Low Risk Oriented to surroundings, Maintained a safe environment. Abuse screen: Denies threats or abuse. Denies injuries from another. Nutritional screening: No deficits noted. Tuberculosis screening: No symptoms or risk factors identified. Assessment: 18:40 Reassessment: Patient appears in no apparent distress at this time. neck pain left db thigh pain states worse this week. General: Appears in no apparent distress. Behavior is anxious. Pain: Complains of pain in left leg. Neuro: Level of Consciousness is awake, alert, obeys commands, Oriented to person, place, time, situation, Moves all extremities. Speech is normal, Reports headache. 19:15 Reassessment: Patient appears in no apparent distress at this time. Patient and/or jb4 family updated on plan of care and expected duration. Pain level reassessed. Patient is alert, oriented x 3, equal unlabored respirations, skin warm/dry/pink. 20:15 Reassessment: Patient appears in no apparent distress at this time. Patient and/or jb4 family updated on plan of care and expected duration. Pain level reassessed. Patient is alert, oriented x 3, equal unlabored respirations, skin warm/dry/pink. 20:55 Reassessment: Patient appears in no apparent distress at this time. Patient and/or jb4 family updated on plan of care and expected duration. Pain level reassessed. Patient is alert, oriented x 3, equal unlabored respirations, skin warm/dry/pink. Patient states feeling better. Vital Signs: 17:04 BP 144 / 80; Pulse 88; Resp 16; Temp 98.2(TE); Pulse Ox 100% on R/A; Weight 64.41 kg; Height 5 ft. 0 in. (152.40 cm); Pain 6/10; 17:12 BP 126 / 81 LA Sitting; ss 18:32 BP 134 / 74; Pulse 71; Resp 16; Pulse Ox 100% on R/A; db 20:00 BP 119 / 72; Pulse 70; Resp 22; Pulse Ox 100% on R/A; jb4 17:04 Body Mass Index 27.73 (64.41 kg, 152.40 cm) Vitals: 18:32 Cardiac Rhythm Assessment Regular Sinus rhythm. db ED Course: 16:38 Patient arrived in ED. am2 17:04 Arm band placed on right wrist. ss 17:11 Triage completed. ss 17:31 Sj Werner PA is PHCP. cp 17:31 Ana Lilia Henning MD is Attending Physician. cp 18:17 Debbie Jane, RN is Primary Nurse. db 18:40 Inserted saline lock: 20 gauge 24 gauge antecubital area, using aseptic technique. db Blood collected. 19:00 Patient has correct armband on for positive identification. Placed in gown. Call light jb4 in reach. Side rails up X 1. Side rails up X2. Client placed on continuous cardiac and pulse oximetry monitoring. NIBP monitoring applied. 19:34 Primary Nurse role handed off by Debbie Jane, DEANDRE 20:15 Tab Solis, RN is Primary Nurse. jb4 20:55 No provider procedures requiring assistance completed. IV discontinued, intact, jb4 bleeding controlled, No redness/swelling at site. Pressure dressing applied. Administered Medications: 20:06 Drug: fentaNYL (PF) 25 mcg Route: IVP; Site: right antecubital; jb4 20:06 Drug: Decadron - Dexamethasone 10 mg Route: IVP; Site: right antecubital; jb4 Medication: 20:55 VIS not applicable for this client. jb4 Outcome: 20:46 Discharge ordered by MD. cp 20:55 Discharged to home ambulatory. jb4 20:55 Condition: stable 20:55 Discharge instructions given to patient, Instructed on discharge instructions, follow up and referral plans. no drinking with medication, no driving heavy equipment, medication usage, Demonstrated understanding of instructions, follow-up care, medications, Prescriptions given X 2. 20:56 Patient left the ED. jb4 Signatures: Katey John RN RN Sj Werner PA PA Tab Solis RN RN jb4 Shereen Mcclelland Wendy Debbie Jane RN RN db
--- NOTE | 2022-09-04 20:47 | EDPHYS ---
Physician Documentation [facility] Name: Stella Lucas Age: 42 yrs Sex: Female : 1980 Arrival Date: 09/04/2022 Time: 16:38 Bed 13 Private MD: ED Physician Ana Lilia Henning HPI: 09/04 17:50 This 42 yrs old Black Female presents to ER via Ambulatory with complaints of Pain All cp Over. 17:50 generalized pain to legs with left worse than right, abdominal pain, upper and lower cp back pain. Onset: The symptoms/episode began/occurred for past several months. Patient reports recent surgery 08-11-[address] Davis for abdominal pain, but patient reports she continues to have pain to back and legs. Patient reports she has seen her PCP who has prescribed Neurontin w/o relief. Historical: - Allergies: 17:02 No Known Allergies; ss - PMHx: 17:02 cyst on ovaries; Endometrosis; fibroids; ss - Immunization history:: Client reports receiving the 2nd dose of the Covid vaccine. - Social history:: Smoking status: Patient denies any tobacco usage or history of. ROS: 17:55 Constitutional: Negative for body aches, chills, fever, poor PO intake. cp 17:55 ENT: Negative for drainage from ear(s), ear pain, sore throat, difficulty swallowing, cp difficulty handling secretions. 17:55 Neck: Positive for pain with movement, pain at rest. 17:55 Cardiovascular: Negative for chest pain, palpitations. 17:55 Respiratory: Negative for cough, shortness of breath, wheezing. 17:55 Back: Positive for pain at rest, pain with movement. 17:55 Neuro: Negative for altered mental status, dizziness, headache, weakness. 17:55 All other systems are negative. Exam: 18:00 Constitutional: The patient appears in no acute distress, alert, awake, non-toxic, well cp developed, well nourished. 18:00 Head/Face: Normocephalic, atraumatic. cp 18:00 Eyes: Periorbital structures: appear normal, Conjunctiva: normal, no exudate, no injection, Sclera: no appreciated abnormality, Lids and lashes: appear normal, bilaterally. 18:00 ENT: External ear(s): are unremarkable, Nose: is normal, Mouth: Lips: moist, Oral mucosa: pink and intact, moist, Posterior pharynx: is normal, airway is patent, no erythema, no exudate. 18:00 Neck: ROM/movement: pain, that is mild, with any movement, limited range of motion, is not appreciated, nuchal rigidity, is not appreciated. 18:00 Chest/axilla: Inspection: normal. 18:00 Cardiovascular: Rate: normal, Rhythm: regular. 18:00 Respiratory: the patient does not display signs of respiratory distress, Respirations: normal, no use of accessory muscles, no retractions, labored breathing, is not present, Breath sounds: are clear throughout, no decreased breath sounds, no stridor, no wheezing. 18:00 Abdomen/GI: Inspection: abdomen appears normal, Bowel sounds: active, all quadrants, Palpation: soft, in all quadrants, mild abdominal tenderness, in all quadrants. 18:00 Back: pain, that is moderate, ROM is normal. 18:00 Musculoskeletal/extremity: Extremities: noted in the left leg: pain, noted in the right leg: pain, ROM: intact in all extremities. 18:00 Neuro: Orientation: to person, place \T\ time. Mentation: is normal, Motor: moves all fours, strength is normal, Sensation: is normal, Gait: is steady. 18:38 ECG was reviewed by the Attending Physician. Vital Signs: 17:04 BP 144 / 80; Pulse 88; Resp 16; Temp 98.2(TE); Pulse Ox 100% on R/A; Weight 64.41 kg; ss Height 5 ft. 0 in. (152.40 cm); Pain 6/10; 17:12 BP 126 / 81 LA Sitting; ss 18:32 BP 134 / 74; Pulse 71; Resp 16; Pulse Ox 100% on R/A; db 20:00 BP 119 / 72; Pulse 70; Resp 22; Pulse Ox 100% on R/A; jb4 17:04 Body Mass Index 27.73 (64.41 kg, 152.40 cm) ss MDM: 17:31 Patient medically screened. cp 18:00 Differential Diagnosis UTI, chronic pain. cp 20:45 Data reviewed: vital signs, nurses notes, lab test result(s), EKG, radiologic studies, cp ultrasound. 20:45 I considered the following discharge prescriptions or medication management in the emergency department Medications were administered in the Emergency Department. See MAR. 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 Response to treatment: the patient's symptoms have markedly improved after treatment, and as a result, I will discharge patient. 09/04 17:48 Order name: US Extremity Venous W Compression Tomas cp 09/04 17:48 Order name: Basic Metabolic Panel cp 09/04 17:48 Order name: CBC with Diff cp 09/04 17:48 Order name: LFT's cp 09/04 17:48 Order name: Magnesium cp 09/04 17:48 Order name: PT-INR cp 09/04 17:48 Order name: EKG; Complete Time: 17:50 cp 09/04 17:48 Order name: Cardiac monitoring; Complete Time: 18:43 cp 09/04 17:48 Order name: EKG - Nurse/Tech; Complete Time: 18:43 cp 09/04 17:48 Order name: IV Saline Lock; Complete Time: 18:43 cp 09/04 17:48 Order name: Labs collected and sent; Complete Time: 18:43 cp 09/04 17:48 Order name: O2 Per Protocol; Complete Time: 18:43 cp 09/04 17:48 Order name: O2 Sat Monitoring; Complete Time: 18:43 cp 09/04 17:48 Order name: CK cp 09/04 17:48 Order name: Urine Dipstick-Ancillary (obtain specimen); Complete Time: 19:21 cp 09/04 18:56 Order name: CBC with Automated Diff; Complete Time: 19:40 EDMS 09/04 19:41 Interpretation: Normal except: RBC 5.35; HGB 11.8; MCV 69.1; MCH 22.0; MCHC 31.9. cp 09/04 18:58 Order name: Protime (+INR); Complete Time: 19:40 EDMS 09/04 19:11 Order name: Basic Metabolic Panel; Complete Time: 19:40 EDMS 09/04 19:11 Order name: Liver (Hepatic) Function; Complete Time: 19:40 EDMS 09/04 20:33 Interpretation: Normal except: AST 8; GLOB 3.7; A/G 1.0. cp 09/04 19:11 Order name: Creatine Phosphokinase; Complete Time: 19:40 EDMS 09/04 19:11 Order name: Magnesium; Complete Time: 19:40 EDMS 09/04 19:20 Order name: Urine Dipstick-Ancillary; Complete Time: 19:40 EDMS 09/04 19:21 Order name: Test, Serum jb4 09/04 19:23 Order name: Urine Microscopic Only jb4 09/04 19:30 Order name: CBC Smear Scan; Complete Time: 19:40 EDMS 09/04 20:11 Order name: US; Complete Time: 20:19 EDMS 09/04 20:20 Interpretation: Report reviewed. cp 09/04 20:15 Order name: Urine Microscopic Only; Complete Time: 20:19 EDMS 09/04 20:20 Interpretation: Reviewed. cp 09/04 20:37 Order name: Test Serum, [employer] EDMS EC:38 Rate is 67 beats/min. Rhythm is regular. [place] interval is normal. QRS interval is normal. cp QT interval is normal. T waves are Inverted in leads aVR, V2. Interpreted by me. Reviewed by me. Administered Medications: 20:06 Drug: fentaNYL (PF) 25 mcg Route: IVP; Site: right antecubital; jb4 20:06 Drug: Decadron - Dexamethasone 10 mg Route: IVP; Site: right antecubital; jb4 Disposition Summary: 09/04/22 20:46 Discharge Ordered Location: Home cp Problem: an ongoing problem cp Symptoms: have improved cp Condition: Stable cp Diagnosis - Acute pain, not elsewhere classified cp Followup: cp - With: Private Physician - When: 2 - 3 days - Reason: Recheck today's complaints Discharge Instructions: - Discharge Summary Sheet cp - Pain Medicine Instructions cp - Acute Pain, Adult cp Forms: - Medication Reconciliation Form cp - Thank You Letter cp - Antibiotic Education cp - Prescription Opioid Use cp Prescriptions: - Mobic 7.5 mg Oral Tablet - take 1 tablet by ORAL route once daily take with food; 20 tablet; Refills: 0, cp Product Selection Permitted - Tramadol 50 mg Oral Tablet - take 1 tablet by ORAL route every 8 hours as needed; 12 tablet; Refills: 0, cp Product Selection Permitted Signatures: Dispatcher [employer] Katey Rey RN RN Sj Guaman PA PA cp Bryson, James, RN RN jb4 Corrections: (The following items were deleted from the chart) 19:21 17:48 Urine Test ordered. cp jb4
[2022-09-04 21:33] VITALS: O2SAT 100
[2022-09-04 21:35] VITALS: BP 119/72
--- NOTE | 2022-09-06 16:43 | EKG ---
Test Date: 2022-09-04 Test Time: 18:33:30 Marine Fisheries Technician: RICH MEASUREMENT RESULTS: Intervals: Rate: 67 AL: 128 QRSD: 74 QT: 376 QTc: 397 [place]: P: 45 AL: 128 QRS: 68 T: 51 INTERPRETIVE STATEMENTS: Normal sinus rhythm Possible Left atrial enlargement Septal infarct, age undetermined Abnormal ECG Compared to ECG 02/21/2014 15:54:01 Myocardial infarct finding now present Electronically Signed On 09-06-22 16:38:31 CANDY SPREADER by Carlos Yeh
== END 2022-09-04 20:56 | disposition home or self-care (01) ==
LOC: ER 16:36
DX: R52 Pain, unspecified (principal)
CPT/HCPCS: 93005; 85025; 80048; 36415; 83735; 82550; 84703; 85610; 80076; 93970; 96375; 96374; 99284; J3010; J1100; 81003; 81015